=== PATIENT | female | born 1965 | race Caucasian/White ===

== ENCOUNTER 2020-12-07 12:27 | Emergency (ER) | payer OTHER ==
[~2020-12-07] VITALS: Ht 160 cm; Wt 74.8 kg
[~2020-12-07 12:27] MED LIST: Ciprodex Otic7.5 ML RIGHTEAR; Flonase 0.05% N16 GM; [UNRECOGNIZED DRUG - OTHER] PO
== END 2020-12-07 13:05 | disposition left against medical advice (07) ==
LOC: ER 12:27
DX: M54.6 Pain in thoracic spine (principal); Z53.21 Procedure and treatment not carried out due to patient leaving prior to being seen by health care provider
CPT/HCPCS: 99282

== ENCOUNTER → 2023-05-27 | Outpatient (CLI) | payer OTHER ==
[2023-05-28 12:00] LABS: Stool Occult Bld Immuno 1 Negative (NEGATIVE)
[2023-05-30 05:44] LABS: OVA AND PARASITE,FECAL INTERP Negative (Negative)
== END | disposition home or self-care (01) ==
LOC: LAB 09:35 → LAB SHORT 09:35
PROVIDERS: Physician Assistant
DX: Z12.11 Encounter for screening for malignant neoplasm of colon (principal)
CPT/HCPCS: 87177; 87209; G0328